=== PATIENT | male | born 1970 | race Caucasian/White ===

== ENCOUNTER 2016-08-09 10:13 | Observation (INO) | payer BC ==
[2016-08-09] VITALS (7 sets, daily range): BP systolic 110–146; BP diastolic 52–104
[~2016-08-09] VITALS: Ht 193 cm; Wt 151.3 kg
[~2016-08-09 10:13] MED LIST: LISINOPRIL10 MG PO; MEN'S MULTI-VI1 EACH PO; PRINIVIL10 MG PO; WELLBUTRIN75 MG PO
[2016-08-09 12:02] LABS: EOSINOPHIL (%) 1.1 % (0-5); EOSINOPHIL COUNT 0.1 K/uL (0-0.3); IMMATURE GRANULOCYTE (%) 0.1 % (0.0-0.7); IMMATURE GRANULOCYTE COUNT 0.1 K/uL; LYMPHOCYTE COUNT 1.5 K/uL (1.0-2.8); MONOCYTE (%) 9.7 % (3-12); MONOCYTE COUNT 0.7 K/uL (0-0.8); NEUTROPHIL COUNT 4.7 K/uL (1.8-6.4)
[2016-08-09 12:15] LABS: CHLORIDE 109 mEq/L (99-109); D-DIMER ELISA 0.17 mg/L FEU (< 0.57); INTER. NORMALIZED RATIO 1.1; POTASSIUM 4.2 mEq/L (3.7-5.4); PROTHROMBIN TIME 11.6 (9.2-11.2); PTT 25.4 (25-32); SODIUM 141 mEq/L (136-147)
[2016-08-09 12:17] LABS: GLUCOSE 93 mg/dL (70-99)
[2016-08-09 12:18] LABS: ANION GAP 10 MEQ/L (2-14)
[2016-08-09 12:21] LABS: GFR ESTIMATE (CALCULATED) > 59 mL/min/
[2016-08-09 12:22] LABS: UREA NITROGEN (BUN) 20 mg/dL (9-23)
[2016-08-09 12:29] LABS: TROP-I INTERPRETATION NEGATIVE; TROPONIN-I < 0.01 ng/mL (0.0-0.30)
[2016-08-09 12:39] LABS: HEMATOCRIT 42.5 % (38.0-50.0); MCH 25.4 PG (29.0-34.0); MCHC 32.2 G/DL (30.0-36.0); MCV 78.7 FL (86-99); RBC DIS.WIDTH-CV 15.9 % (11.8-14.6)
[2016-08-09 13:14] LABS: HEMATOLOGY COMMENT 1 SMEAR COMPATIBLE; MEAN PLAT.VOLUME 13.2 uM^3 (9.0-12.4); PLAT.SUFFICIENCY ADEQUATE; PLATELET COUNT 225 K/uL (156-360); USER ID BLP
[2016-08-09] MEDS ORDERED: VITRON-C TABLE1 EACH PO (15:17)
[2016-08-09] MEDS ORDERED: ZYBAN 150 MG T150 MG PO (15:17)
[2016-08-09] MEDS ORDERED: ASPIRIN325 MG PO (15:18)
[2016-08-09 17:58] LABS: TROP-I INTERPRETATION NEGATIVE; TROPONIN-I < 0.01 ng/mL (0.0-0.30)
[2016-08-09 18:44] LABS: Estimated Average Glucose 117 mg/dL (70-123); HEMOGLOBIN A1c (GLYCOHEMOGLOB) 5.7 % HGB (Below 5.7)
[2016-08-10 04:28] VITALS: BP 107/55
[2016-08-10 08:44] VITALS: BP 105/62
[2016-08-10 12:03] VITALS: BP 115/81
== END 2016-08-10 13:04 | disposition home or self-care (01) ==
LOC: EME 10:13 → 5WEST 16:38 → EDOF 16:38 → 5WEST 19:27
PROVIDERS: Emergency Medicine; Internal Medicine
DX: M50.10 Cervical disc disorder with radiculopathy, unspecified cervical region (principal); R07.9 Chest pain, unspecified; I95.9 Hypotension, unspecified; Z86.718 Personal history of other venous thrombosis and embolism; Z86.711 Personal history of pulmonary embolism; Z98.84 Bariatric surgery status; M48.02 Spinal stenosis, cervical region; R42 Dizziness and giddiness; R20.0 Anesthesia of skin; Z88.2 Allergy status to sulfonamides; Z88.5 Allergy status to narcotic agent; Z88.8 Allergy status to other drugs, medicaments and biological substances; Z82.49 Family history of ischemic heart disease and other diseases of the circulatory system; Z83.3 Family history of diabetes mellitus; E66.9 Obesity, unspecified
CPT/HCPCS: 70450; 70498; 71010; 78582; 80048; 82533 91; 83036; 83880; 84484; 85025; 85379; 85610; 85730; 93005; 93971; 99281; 99284; A9540; A9567; G0378; J1650; J7030

== ENCOUNTER 2016-12-21 09:45 | Emergency (ER) | payer BC ==
[~2016-12-21] VITALS: Ht 193 cm; Wt 145.6 kg
[~2016-12-21 09:45] MED LIST changes: +ASPIRIN325 MG PO; +VITRON-C TABLE1 EACH PO; +ZYBAN 150 MG T150 MG PO
[2016-12-21 10:43] LABS: EOSINOPHIL COUNT 0.1 K/uL (0-0.3); HEMATOCRIT 52.3 % (38.0-50.0); IMMATURE GRANULOCYTE (%) 0.2 % (0.0-0.7); INSTRUMENT ABS NEUTROPHIL CT 4.3 K/uL; LYMPHOCYTE COUNT 1.6 K/uL (1.0-2.8); MCHC 33.1 G/DL (30.0-36.0); MCV 87.8 FL (86-99); MEAN PLAT.VOLUME 12.9 uM^3 (9.0-12.4); MONOCYTE (%) 8.1 % (3-12); MONOCYTE COUNT 0.5 K/uL (0-0.8); NEUTROPHIL (%) 65.1 % (45-76); NEUTROPHIL COUNT 4.3 K/uL (1.8-6.4); PLATELET COUNT 178 K/uL (156-360); RBC DIS.WIDTH-CV 14.6 % (11.8-14.6); RBC DIS.WIDTH-SD 46.5 % (39-53); RED BLOOD COUNT 5.96 M/uL (4.00-5.50); WHITE BLOOD COUNT 6.6 K/uL (4.1-10.2)
[2016-12-21 10:54] LABS: CHLORIDE 108 mEq/L (99-109); SODIUM 141 mEq/L (136-147)
[2016-12-21 10:56] LABS: GLUCOSE 104 mg/dL (70-99)
[2016-12-21 10:57] LABS: ANION GAP 9 MEQ/L (2-14)
[2016-12-21 10:58] LABS: TOTAL BILIRUBIN 0.9 mg/dL (0.0-1.0)
[2016-12-21 11:00] LABS: ALKALINE PHOSPHATASE 94 IU/L (3-129); GFR ESTIMATE (CALCULATED) > 59 mL/min/
[2016-12-21 11:01] LABS: TROP-I INTERPRETATION NEGATIVE; TROPONIN-I < 0.01 ng/mL (0.0-0.30); UREA NITROGEN (BUN) 19 mg/dL (9-23)
[2016-12-21 13:29] LABS: TROP-I INTERPRETATION NEGATIVE; TROPONIN-I < 0.01 ng/mL (0.0-0.30)
[2016-12-21 13:47] VITALS: BP 123/80
== END 2016-12-21 13:50 | disposition home or self-care (01) ==
LOC: EME 09:45
PROVIDERS: Emergency Medicine
DX: R00.2 Palpitations (principal); E86.0 Dehydration; R07.9 Chest pain, unspecified; R11.0 Nausea; R42 Dizziness and giddiness; Z87.442 Personal history of urinary calculi; Z79.82 Long term (current) use of aspirin
CPT/HCPCS: 71020; 80053; 83735; 84484; 85025; 93005; 99281; 99285; J2405; J7030